=== PATIENT | female | born 1965 | race Hispanic/Latino ===

== ENCOUNTER 2016-06-21 12:53 | Day surgery (SDC) | payer OTHER ==
[2016-06-21] MEDS ORDERED: WATER FOR IRRIG STERILE IR ONE (13:07)
[2016-06-21] MEDS ORDERED: NACL 0.9% 1000 ML 1,000 ML ONE (13:20)
[2016-06-21] MEDS ORDERED: DIPRIVAN 10 MG/ML IV ONE ×3 (13:43→14:44)
--- NOTE | 2016-06-21 13:55 | Anesthesia Consultation ---
Anesthesia Consult and Med Hx Date of service: 06/21/16 - Airway Anesthetic Teeth Evaluation: Good ROM Head & Neck: Adequate Mental/Hyoid Distance: Adequate Mallampati Class: Class II Intubation Access Assessment: Probably Good - Pulmonary Exam CTA: Yes - Cardiac Exam Cardiac Exam: RRR - Pre-Operative Health Status ASA Pre-Surgery Classification: ASA2 Proposed Anesthetic Plan: MAC - Pulmonary Hx Smoking: Yes (Smoked half a pack today) - Other Systems Hx Obesity: Yes
--- NOTE | 2016-06-21 13:57 | Anesthesia Day of Surgery ---
Anesthesia Day of Surgery - Day of Surgery Patient Examined: Yes Patient H&P Reviewed: Yes Patient is NPO: Yes
[2016-06-21] MEDS ORDERED: NACL 0.9% 1000 ML 1,000 ML IV SCH (14:00)
--- NOTE | 2016-06-21 15:23 | Operative Report ---
Operative Report Operative Report: Date of procedure: 06/21/2016 Procedure: Colonoscopy with multiple snare polypectomies, multiple hot biopsy polypectomies, multiple polyp ablations, multiple submucosal injections with saline to elevate colon polyps. Attending physician: Song Hawley MD Evidence Custodian: Song Hawley MD Indication: Patient is a 50-year-old female who presented for colorectal cancer screening. She does have a family history of colon cancer. A colonoscopy is done to evaluate patient so that treatment may be directed based on findings. Consent: Informed consent was obtained after advising the patient and family regarding nature of this procedure, its indications, potential benefits as well as possible complications including but not limited to bleeding perforation and adverse reaction to medication, infection as well as other cardiopulmonary complications. An informed written and verbal consent was then obtained after due opportunity was provided for questions and answers. Monitoring: Patient was monitored continuously with pulse oximetry and electrocardiographic recordings as well as blood pressure recordings. Vital signs remained stable throughout this procedure with no untoward events. Preoperative assessment: Patient was assessed immediately prior to this procedure for capacity to tolerate monitored anesthesia care and moderate sedation as well as general anesthesia. Patient's ASA classification is 2, Mallampati class is 2, Hyomental distance is 3. Instrument: Shangby video colonoscope. Medications: Propofol, given intravenously in divided doses. For details please refer to anesthesia records. Description of procedure: Patient was placed in the left lateral decubitus position after achieving sedation, a digital rectal examination was performed following which the colonoscope was introduced into the anal verge and advanced to the cecum which was identified by the cecal valve, the appendiceal orifice, as well as by the cecal strap and direct transillumination. The colonoscope was subsequently withdrawn with careful inspection of all mucosal surfaces. Patient tolerated this procedure well and was subsequently taken to the recovery room. The following findings were noted. Findings: There were a few scattered diverticula in the sigmoid colon and descending colon. These were diminutive. The cecum was normal. In the proximal ascending colon, patient had a broad-based polyp on the fold. It was flat. It was elevated with submucosal injection of saline. It measured approximately 2 cm to 2.5 cm. After elevating, it was removed by snare electrocautery and retrieved. The rest of the ascending colon was normal transverse colon was normal. The descending colon patient had a sessile polyp measured protein 6-8 mm was removed by hot biopsy polypectomy and retrieved. In the sigmoid colon, patient had 10 polyps that measured between 5-8 mm. Some of them were sessile some of them were flat all polyps removed by hot biopsy polypectomy and retrieved. In the rectum, patient had 9 flat polyps these were 3-5 mm. All polyps were ablated completely. Close to the anal verge there was a broad-based polyp. It measured approximately 1-1.5 cm. It was elevated using submucosal injection of saline and removed by snare electrocautery and retrieved. On the retroflex view at the anal verge, patient had large prominent internal hemorrhoids. Impression: Ascending colon polyp status post snare polypectomy Rectal polyp status post snare polypectomy 8 descending colon polyp and sigmoid colon polyps status post hot biopsy polypectomy Rectal polyp status post ablation Diverticulosis. Internal hemorrhoids. Plan: Follow pathology report High-fiber diet Consider repeat colonoscopy in 6-12 months given that patient had multiple colon polyps and family history of colon cancer.
--- NOTE | 2016-06-21 15:25 | Discharge Summary ---
Short Stay Discharge Plan Activity: advance as tolerated Weight Bearing Status: Weight Bear as Tolerated Diet: regular Additional Instructions: Post Sedation D/C Instructions When you return home you may resume your regular diet unless otherwise directed. -Go directly home from the hospital and rest quietly. You may resume normal activities tomorrow. -Do NOT drive, return to work, operate any machinery or make any important personal or business decisions today. -Do NOT drink any alcohol or take nerve or sleeping drugs. They add to the effects of the medicine still present in your body. Follow up with Dr. Hawley to obtain pathology results.
[2016-06-21 15:34] VITALS: BP 118/61
== END 2016-06-21 12:54 | disposition home or self-care (01) ==
LOC: GIO 12:53 → EDBD 17:15
PROVIDERS: ATTEND Internal Medicine Gastroenterology
DX: Z12.11 Encounter for screening for malignant neoplasm of colon (principal); K63.5 Polyp of colon; K62.1 Rectal polyp; K57.30 Diverticulosis of large intestine without perforation or abscess without bleeding; K64.8 Other hemorrhoids; F17.210 Nicotine dependence, cigarettes, uncomplicated; Z72.89 Other problems related to lifestyle; Z90.710 Acquired absence of both cervix and uterus; Z80.0 Family history of malignant neoplasm of digestive organs
CPT/HCPCS: 45381; 45384; 45385; 45388; 88305; J2704; J7030

== ENCOUNTER 2020-11-19 16:13 | Emergency (ER) | payer OTHER ==
[2020-11-19 16:53] VITALS: BP 114/42
== END 2020-11-19 19:17 | disposition home or self-care (01) ==
LOC: ED 16:13
DX: R60.0 Localized edema (principal); F17.200 Nicotine dependence, unspecified, uncomplicated; Z90.49 Acquired absence of other specified parts of digestive tract; Z98.890 Other specified postprocedural states; Z79.899 Other long term (current) drug therapy
CPT/HCPCS: 93970; 99283

== ENCOUNTER 2021-02-07 11:14 | Emergency (ER) | payer OTHER ==
[2021-02-07 11:35] VITALS: BP 133/70
[2021-02-07] MEDS ORDERED: TETANUS,DIPH,PERTUSS(ACELL) VACCINE 0.5 ML SYRINGE IM ONE (12:07)
[2021-02-07] MEDS ORDERED: LIDOCAINE 2%/EPINEPHRINE 1:200,000 VIAL (20 ML) INFILTRATI ONE (12:07)
--- NOTE | 2021-02-07 12:53 | XRay Report ---
RIGHT FOREARM 2 VIEW(S) INDICATION / CLINICAL INFORMATION: right forearm lac COMPARISON: None available. FINDINGS: BONES / JOINT(S): No acute fracture or subluxation. No significant arthritis. SOFT TISSUES: No significant abnormality. ADDITIONAL FINDINGS: None. Signer Name: Arun Sadler MD Signed: 02/07/2021 12:48 PM Workstation Name: [id number]
--- NOTE | 2021-02-07 13:13 | Emergency Department Report ---
ED Laceration HPI - HPI Chief Complaint: Wound/Laceration Stated Complaint: CUT ON ARM Time Seen by Provider: 02/07/21 11:46 Occurred When: Today Location: Upper Extremity Severity: mild Tetanus Status: Not up to Date Laceration Symptoms: Yes Pain, No Foreign Body Sensation, No Numbness, No Weakness Other History: This is a 55-year-old female nontoxic, well nourished in appearance, no acute signs of distress presents to the ED with c/o of right forearm laceration that occurred today prior to arrival. Patient stated that she was trying to open her doggy gate which the metal caused a laceration. Patient denies decreased sensation or range of motion. Patient stated bleeding is under control. Denies any numbness, tingling, fever, chills, nausea, vomiting, chest pain, shortness of breath, headache or stiff neck. Patient denies any allergies to significant past medical history. Patient is that he is not up-to-date with tetanus. ED Review of Systems ROS: Stated complaint: CUT ON ARM Other details as noted in HPI Comment: All other systems reviewed and negative Constitutional: denies: chills, fever Eyes: denies: eye pain, eye discharge, vision change ENT: denies: ear pain, throat pain Respiratory: denies: cough, shortness of breath, wheezing Cardiovascular: denies: chest pain, palpitations Endocrine: no symptoms reported Gastrointestinal: denies: abdominal pain, nausea, diarrhea Genitourinary: denies: urgency, dysuria, discharge Musculoskeletal: denies: back pain, joint swelling, arthralgia Skin: denies: rash, lesions Neurological: denies: headache, weakness, paresthesias Psychiatric: denies: anxiety, depression Hematological/Lymphatic: denies: easy bleeding, easy bruising ED Past Medical Hx - Surgical History Hx Appendectomy: Yes (1986) Additional Surgical History: 360 lipo suction and BBL - Social History Smoking Status: Current Every Day Smoker - Medications Home Medications: Home Medications Medication Instructions Recorded Confirmed Last Taken Type Estradiol 1 mg PO DAILY 06/21/16 06/21/16 06/20/16 History Vitamin E Cap 50,000 units PO 1XW 06/21/16 06/21/16 06/20/16 History Naproxen 500 mg PO Q12H PRN #12 tablet 02/07/21 Unknown Rx Sulfamethoxazole/Trimethoprim 1 each PO BID #14 tablet 02/07/21 Unknown Rx [Bactrim DS TAB] Laceration Physical Exam - Exam General: Vital signs noted. No distress. Alert and acting appropriately. Wound Length (cm): 2 (Right mid forearm) Laceration Location: Upper Extremity Full Body Front + Back: 1 - 2 cm superficial laceration Laceration Exam: Yes Normal Distal CMS, No Foreign Body, No Exposed Tendon, Vessel, or Nerve, No Tendon Injury ED Course Vital Signs 02/07/21 11:33 Temperature 98 F Pulse Rate 59 L Respiratory 18 Rate Blood Pressure 133/70 [Left] O2 Sat by Pulse 98 Oximetry - Reevaluation(s) Reevaluation #1: 02/07/21 13:13 Patient is speaking in full sentences with no signs of distress noted. - Laceration /Wound Repair Right Arm Wound Location: upper extremity (right forearm) Wound Length (cm): 2 Wound's Depth, Shape: superficial Wound Explored: clean Irrigated w/ Saline (ccs): 40 Betadine Prep?: Yes Volume Anesthetic (ccs): 3 (2% lidocaine with epi 1-200,000) Wound Repaired With: sutures Suture Size/Type: 4:0, proline Number of Sutures: 5 Layer Closure?: No Sterile Dressing Applied?: Yes Progress: Under sterile field, I used Betadine to clean the area. I then used 40 mL of normal saline to flush the area. I then used 2% lidocaine with epi 1-200,000 and injected 3 mL to the wound. I then used a 4-0 Prolene to suture the laceration. Number of stitches 5. I then applied a sterile 4 x 4 with tape. M inimal bleeding noted but is under control. Patient tolerated procedure well with no signs of distress. ED Medical Decision Making - Radiology Data [facility] [address] [place] [address] XRay Report Signed Patient: SYLVESTER TRAN MR#: [id number] : 1965 Acct:[id number] Age/Sex: 55 / F ADM Date: 02/07/21 Loc: ED Attending Dr: Ordering Physician: YOSI RANGEL NP Date of Service: 02/07/21 Procedure(s): XR forearm RT Accession Number(s): [id number] cc: YOSI RANGEL NP Fluoro Time In Minutes: RIGHT FOREARM 2 VIEW(S) INDICATION / CLINICAL INFORMATION: right forearm lac COMPARISON: None available. FINDINGS: BONES / JOINT(S): No acute fracture or subluxation. No significant arthritis. SOFT TISSUES: No significant abnormality. ADDITIONAL FINDINGS: None. Signer Name: Arun Sadler MD Signed: 02/07/2021 12:48 PM Workstation Name: [id number] Transcribed By: SS Dictated By: Arun Sadler MD Electronically Authenticated By: Arun Sadler MD Signed Date/Time: 02/07/211247 DD/ 46 TD/TT: - Medical Decision Making This is a 55-year-old female that presents with laceration. Patient is stable and was examined by me. The laceration suturing has been performed and has been performed and patient tolerated well. A sterile dressing has been applied. Patient was educated on proper wound care. Patient is discharged with Bactrim. Patient was instructed to return in 10 days for suture removal. Patient was instructed to refer to Follow-up with a primary care doctor in 3-5 days or if symptoms worsen and continue return to emergency room as soon as possible. At time of discharge, the patient does not seem toxic or ill in appearance. No acute signs of distress noted. Patient agrees to discharge treatment plan of care. No further questions noted by the patient. Critical care attestation.: If time is entered above; I have spent that time in minutes in the direct care of this critically ill patient, excluding procedure time. ED Disposition Clinical Impression: Laceration of right forearm Qualifiers: Encounter type: initial encounter Qualified Code(s): S51.811A - Laceration w ithout foreign body of right forearm, initial encounter Disposition: HOME / SELF CARE / HOMELESS Is pt being admited?: No Does the pt Need Aspirin: No Condition: Stable Instructions: Laceration Care, Adult Additional Instructions: Follow-up with a primary care doctor in 3-5 days or if symptoms worsen and continue return to emergency room as soon as possible. Return in 10 days for suture removal. Prescriptions: Sulfamethoxazole/Trimethoprim [Bactrim DS TAB] 1 each PO BID #14 tablet Naproxen 500 mg PO Q12H PRN #12 tablet PRN Reason: Pain , Severe (7-10) Referrals: PRIMARY CARE, [Referring] - 3-5 Days FABBY HARDIN MD [Staff Physician] - 3-5 Days Time of Disposition: 13:39
== END 2021-02-07 14:18 | disposition home or self-care (01) ==
LOC: ED 11:14
DX: S51.811A Laceration without foreign body of right forearm, initial encounter (principal); W26.8XXA Contact with other sharp object(s), not elsewhere classified, initial encounter; Y93.89 Activity, other specified; Y92.89 Other specified places as the place of occurrence of the external cause; Y99.8 Other external cause status
CPT/HCPCS: 90471; 90715